=== PATIENT | male | born 1995 | race Caucasian/White ===

== ENCOUNTER 2017-05-31 20:22 | Emergency (ER) | payer SELFPAY ==
[2017-05-31 22:29] VITALS: BP 137/91
[2017-05-31] MEDS ORDERED: ACYCLOVIR 800 MG TABLET PO ONE (22:33)
[2017-05-31] MEDS ORDERED: DEXAMETHASONE 4 MG TABLET PO ONE (22:33)
--- NOTE | 2017-05-31 22:35 | ER Document Report ---
ED General - General Chief Complaint: Rash Stated Complaint: POSSIBLE RASH Time Seen by Provider: 05/31/17 22:31 Notes: Patient is a 21-year-old male without past medical history who presents with 3 days of progressively worsening rash on his right middle chest extending underneath the right axilla. Patient describes the area as a burning, constant , moderate pain. Touching the area worsens the pain. Nothing improves the pain. He denies any fever or constitutional symptoms. No headache. He denies any history of similar symptoms in the past. He has not seen his general doctor regarding today's concerns. No history of immune compromise or immunosuppressive drugs. TRAVEL OUTSIDE OF THE [place] IN LAST 30 DAYS: No - Related Data Allergies/Adverse Reactions: azithromycin [From Zithromax] Allergy (Verified 05/31/17 20:27) Past Medical History - General Information source: Patient - Social History Smoking Status: Never Smoker Chew tobacco use (# tins/day): No Frequency of alcohol use: None Drug Abuse: None Lives with: Spouse/Significant other Family History: Reviewed & Not Pertinent Patient has suicidal ideation: No Patient has homicidal ideation: No Renal/ Medical History: Denies: Hx Peritoneal Dialysis Review of Systems - Review of Systems Notes: Constitutional: Negative for fever. HENT: Negative for sore throat. Eyes: Negative for visual changes. Cardiovascular: Negative for chest pain. Respiratory: Negative for shortness of breath. Gastrointestinal: Negative for abdominal pain, vomiting or diarrhea. Genitourinary: Negative for dysuria. Musculoskeletal: Negative for back pain. Skin: Positive for rash. Neurological: Negative for headaches, weakness or numbness. 10 point ROS negative except as marked above and in HPI. Physical Exam - Vital signs Vitals: Temp Pulse Resp BP Pulse Ox 98.5 F 84 18 125/72 98 05/31/17 20:34 05/31/17 20:34 05/31/17 20:34 05/31/17 20:34 05/31/17 20:34 Interpretation: Normal Notes: PHYSICAL EXAMINATION: GENERAL: Well-appearing, well-nourished and in no acute distress. HEAD: Atraumatic, normocephalic. EYES: Pupils equal round and reactive to light, extraocular movements intact, sclera anicteric, conjunctiva are normal. ENT: nares patent, oropharynx clear without exudates. Moist mucous membranes. NECK: Normal range of motion, supple without lymphadenopathy LUNGS: Breath sounds clear to auscultation bilaterally and equal. No wheezes rales or rhonchi. HEART: Regular rate and rhythm without murmurs ABDOMEN: Soft, nontender, normoactive bowel sounds. No guarding, no rebound. No masses appreciated. EXTREMITIES: Normal range of motion, no pitting or edema. No cyanosis. NEUROLOGICAL: No focal neurological deficits. Moves all extremities spontaneously and on command. PSYCH: Normal mood, normal affect. SKIN: Warm, Dry, normal turgor, there are vesicular rash extending from the level just below the nipple along the lateral aspect of the right pectoralis muscle extending underneath the right axilla. No surrounding induration or purulent drainage Course - Re-evaluation Re-evalutation: 05/31/17 22:31 Patient presents with shingles on the right chest wrapping up underneath the axilla. He has no history of immune compromise, use of steroids, history of chemotherapy, or history of HIV or AIDS. No history of IV drug use. No risk factors for HIV or AIDS. Otherwise well in appearance, vitals normal limits, no acute distress. He has been started on acyclovir and given a dose of dexamethasone here in the emergency department. Nothing to suggest disseminated zoster. At this time will discharge with return precautions and follow-up recommendations. Verbal discharge instructions given a the bedside and opportunity for questions given. Medication warnings reviewed. Patient is in agreement with this plan and has verbalized understanding of return precautions and the need for primary care follow-up in the next 24-72 hours. - Vital Signs Vital signs: Temp Pulse Resp BP Pulse Ox 98.4 F 78 18 137/91 H 98 05/31/17 22:28 05/31/17 22:28 05/31/17 22:28 05/31/17 22:28 05/31/17 22:28 Discharge - Discharge Clinical Impression: Shingles Qualifiers: Herpes zoster complications: without complications Qualified Code(s): B02.9 - Zoster without complications Condition: Good Disposition: HOME, SELF-CARE Additional Instructions: You have been diagnosed with shingles. Please take the antiviral medication as prescribed until completed. For your pain: Take ibuprofen 600 mg and acetaminophen 1000 mg every 6 hours together as needed for pain. Please return if you develop fever, pus draining from the areas of the rash, vomiting, severe headache, confusion, or any other symptoms that are worrisome to you. Follow- up with your primary care doctor within the next 72 hours. Prescriptions: Acyclovir 800 mg PO 5XD #35 tablet
[2017-05-31] MEDS ORDERED: ACYCLOVIR 800 MG TABLET ONE (22:47)
== END 2017-05-31 23:01 | disposition home or self-care (01) ==
LOC: ER 20:22
DX: B02.9 Zoster without complications (principal); R21 Rash and other nonspecific skin eruption
CPT/HCPCS: 99282

== ENCOUNTER 2017-08-09 18:38 | Emergency (ER) | payer SELFPAY ==
[2017-08-09] MEDS ORDERED: TERBUTALINE SULFATE INJ/PF 1 MG/1 ML SDV SUBCUT ONE (18:52)
[2017-08-09] MEDS ORDERED: METHYLPREDNISOLONE INJ 125 MG/2 ML SDV IV ONE (18:52)
[2017-08-09] MEDS ORDERED: IPRATROPIUM/ALBUTEROL 0.5-2.5 MG/3 ML AMPUL NEB ONE ×2 (18:52→18:56)
--- NOTE | 2017-08-09 18:56 | ER Document Report ---
ED Medical Screen (RME) - General Chief Complaint: Asthma Exacerbation Stated Complaint: SHORT OF BREATH Time Seen by Provider: 08/09/17 18:51 Notes: RAPID MEDICAL EVALUATION DISCLOSURE I have seen this patient as part of a Rapid Medical Evaluation and, if applicable, placed any initially appropriate orders. The patient will be seen and fully evaluated, including a full history and physical exam, by a provider ( in Main ED or Fast Track) when a room becomes available. 21-year-old male here with shortness of breath wheezing. History was not obtained as the patient is having respiratory distress. Patient was told to focus on breathing and was immediately taken back to resuscitation room. EXAM Quiet chest with scant wheezing Significantly decreased aeration Tachycardic TRAVEL OUTSIDE OF THE [place] IN LAST 30 DAYS: No - Related Data Allergies/Adverse Reactions: azithromycin [From Zithromax] Allergy (Verified 05/31/17 20:27) Past Medical History Renal/ Medical History: Denies: Hx Peritoneal Dialysis Physical Exam - Vital signs Vitals: Temp Pulse Resp BP Pulse Ox 100.4 F 124 H 13 146/82 H 92 08/09/17 18:45 08/09/17 18:45 08/09/17 18:45 08/09/17 18:45 08/09/17 18:45 Course - Vital Signs Vital signs: Temp Pulse Resp BP Pulse Ox 100.4 F 124 H 13 146/82 H 92 08/09/17 18:45 08/09/17 18:45 08/09/17 18:45 08/09/17 18:45 08/09/17 18:45
[2017-08-09] MEDS ORDERED: MAGNESIUM SULFATE/D5W 1 GM/100 ML RTUPB IV SCH (19:00)
[2017-08-09] MEDS ORDERED: ALBUTEROL SULFATE 0.083% NEB 2.5 MG/3 ML AMPUL NEB ONE ×2 (19:02→19:57)
--- NOTE | 2017-08-09 19:03 | ER Document Report ---
ED General - General Chief Complaint: Asthma Exacerbation Stated Complaint: SHORT OF BREATH Time Seen by Provider: 08/09/17 18:51 Cannot obtain history due to: Unstable vital signs Notes: Patient is a 21-year-old male with a past medical history of asthma who presents with 24 hours of progressively worsening shortness of breath. Patient reports that his symptoms earlier today have become progressively worse throughout the day. Patient reports that he attempted to use his home inhalers with minimal to no success. He reports that he required hospitalization for his asthma several times and as a child but never as an adult. He has never required intubation for his asthma. He does not have a primary care physician. He notes that he has had a mild, nonproductive cough for the past 36-48 hours. Any form of exertion seems to worsen his symptoms. He denies any fever or sputum production. TRAVEL OUTSIDE OF THE [place] IN LAST 30 DAYS: No - Related Data Allergies/Adverse Reactions: azithromycin [From Zithromax] Allergy (Verified 05/31/17 20:27) Past Medical History - General Information source: Patient - Social History Smoking Status: Never Smoker Frequency of alcohol use: None Drug Abuse: None Lives with: Spouse/Significant other Family History: Reviewed & Not Pertinent Renal/ Medical History: Denies: Hx Peritoneal Dialysis Review of Systems - Review of Systems Notes: Constitutional: Negative for fever. HENT: Negative for sore throat. Eyes: Negative for visual changes. Cardiovascular: Negative for chest pain. Respiratory: Positive for shortness of breath. Gastrointestinal: Negative for abdominal pain, vomiting or diarrhea. Genitourinary: Negative for dysuria. Musculoskeletal: Negative for back pain. Skin: Negative for rash. Neurological: Negative for headaches, weakness or numbness. 10 point ROS negative except as marked above and in HPI. Physical Exam - Vital signs Vitals: Temp Pulse Resp BP Pulse Ox 100.4 F 124 H 13 146/82 H 92 08/09/17 18:45 08/09/17 18:45 08/09/17 18:45 08/09/17 18:45 08/09/17 18:45 Interpretation: Tachycardic, Hypoxic, Tachypneic Notes: PHYSICAL EXAMINATION: GENERAL: Moderate to severe respiratory distress. Appears visibly uncomfortable. HEAD: Atraumatic, normocephalic. EYES: Pupils equal round and reactive to light, extraocular movements intact, sclera anicteric, conjunctiva are normal. ENT: nares patent, oropharynx clear without exudates. Moist mucous membranes. NECK: Normal range of motion, supple without lymphadenopathy LUNGS: Moderate severe respiratory distress with intercostal and supraclavicular retractions. Breathing approximately 30 times per minute. Poor air movement throughout. Heart wheeze next visit coughing. Tense end expiratory wheezing. HEART: Regular tachycardia without murmurs ABDOMEN: Soft, nontender, normoactive bowel sounds. No guarding, no rebound. No masses appreciated. EXTREMITIES: Normal range of motion, no pitting or edema. No cyanosis. NEUROLOGICAL: No focal neurological deficits. Moves all extremities spontaneously and on command. PSYCH: Moderately anxious SKIN: Warm, Dry, normal turgor, no rashes or lesions noted. Course - Re-evaluation Re-evalutation: 08/09/17 19:02 Patient presents in moderate to severe respiratory distress breathing approximately 30-34 breaths per minute, very poor air movement throughout and a tight end expiratory wheezing in all lung hill. He is retracting. He was immediately placed in a resuscitation room. Continuous albuterol and ipratropium nebulizers have been initiated. IV will be established and 2 g magnesium will be rapidly infused over 10 minutes. Solu-Medrol will be administered. I will continue to reassess this patient on regular intervals as he is high risk for decompensation from a respiratory standpoint. 08/09/17 19:58 Patient continues to wheeze although is moving air much more appropriately. He remains moderately tachypneic but his work of breathing has improved. We are continuing continuous nebulizers at this time point. Magnesium has infused as has Solu-Medrol. Will continue to monitor closely. 08/09/17 20:52 Chest x-ray clear. Labs unremarkable. Patient is no longer wheezing, no longer in any form of respiratory distress, mild cough. His nebulizers have been discontinued and he is currently saturating 95% on room air. We will monitor to ensure that he remains improved off of continuous nebulizers for at least 1 hour. 08/09/17 22:14 Patient has continued to tolerate being off continuous nebulizers now for over 1 hour. He is no longer tachypneic, saturating 98% on room air and his tachycardia has improved. He has no decreased air movement in the lung hill and no longer has been expiratory wheezing. He will be discharged home on prednisone, and albuterol inhaler with spacer and Qvar for 21 days. At this time will discharge with return precautions and follow-up recommendations. Verbal discharge instructions given a the bedside and opportunity for questions given. Medication warnings reviewed. Patient is in agreement with this plan and has verbalized understanding of return precautions and the need for primary care follow-up in the next 24-72 hours. - Vital Signs Vital signs: Temp Pulse Resp BP Pulse Ox 98.6 F 120 H 15 126/69 H 96 08/09/17 22:46 08/09/17 19:15 08/09/17 22:01 08/09/17 22:00 08/09/17 22:01 - Laboratory Result Diagrams: 08/09/17 19:05 08/09/17 19:05 Laboratory results interpreted by me: 08/09/17 08/09/17 19:05 19:05 Lymphocytes % 12.4 L Glucose 119 H - Diagnostic Test Radiology reviewed: Image reviewed, Reports reviewed Radiology results interpreted by me: 08/09/17 22:14 Chest x-ray: No acute infiltrate or pneumothorax Critical Care Note - Critical Care Note Total time excluding time spent on procedures (mins): 38 Comments: Critical care time spent obtaining history from patient or surrogate, discussions with consultants, development of treatment plan with patient or surrogate, evaluation of patient's response to treatment, examination of patient , ordering and performing treatments and interventions, ordering and review of laboratory studies, re-evaluation of patient's condition, ordering and review of radiographic studies and review of old charts Discharge - Discharge Clinical Impression: Respiratory distress Asthma exacerbation Qualifiers: Asthma severity: moderate Asthma persistence: persistent Qualified Code(s): J45.41 - Moderate persistent asthma with (acute) exacerbation Condition: Good Disposition: HOME, SELF-CARE Additional Instructions: You were seen for an asthma exacerbation. Your symptoms improved with treatment here in the emergency department. However, it is very important that you return to the emergency department immediately if you began to have worsening difficulty breathing that does not respond to your normal home nebulizers. You are also being sent home on a five-day course of steroids that you should start taking tomorrow. Please also follow closely with your primary care physician. you should also return to emergency department if you develop fever greater than 101, persistent cough, persistent vomiting, pass out, or any other symptoms that are concerning to you. Prescriptions: Beclomethasone Dipropionate [Qvar] 1 - 2 inh IH BID 21 Days #1 [email or web address] Prednisone [Deltasone 20 mg Tablet] 3 tab PO DAILY 5 Days tablet Forms: Return to Work
[2017-08-09 19:26] LABS: ABSOLUTE EOSINOPHILS # (AUTO) 0.3 10^3/uL (0.0-0.6); ABSOLUTE MONOCYTES (AUTO) 0.7 10^3/uL (0.1-1.4); ABSOLUTE NEUT (AUTO) 6.4 10^3/uL (1.7-8.2); BASOPHILS % (AUTO) 0.3 % (0-2); HEMATOCRIT 47.6 % (37.9-51.0); HEMOGLOBIN 16.5 g/dL (13.5-17.0); LYMPHOCYTES % (AUTO) 12.4 % (13-45); MEAN CORPUSCULAR HEMOGLOBIN 31.3 pg (27.0-33.4); MEAN CORPUSCULAR HGB CONC 34.7 g/dL (32.0-36.0); MEAN CORPUSCULAR VOLUME 90 fl (80-97); MONOCYTES % (AUTO) 8.2 % (3-13); PLATELET COUNT 243 10^3/uL (150-450); RED BLOOD COUNT 5.27 10^6/uL (4.35-5.55); RED CELL DISTRIBUTION WIDTH 12.9 % (11.5-14.0); SEGMENTED NEUTROPHILS % (AUTO) 76.1 % (42-78); TOTAL CELLS COUNTED % (AUTO) 100 %; WHITE BLOOD COUNT 8.4 10^3/uL (4.0-10.5)
[2017-08-09 19:34] LABS: ANION GAP 16 (5-19); BLOOD UREA NITROGEN 9 mg/dL (7-20); CALCIUM 10.1 mg/dL (8.4-10.2); CARBON DIOXIDE 24 mmol/L (22-30); CHLORIDE 101 mmol/L (98-107); GLUCOSE 119 mg/dL (75-110); POTASSIUM 3.9 mmol/L (3.6-5.0); SODIUM 141.1 mmol/L (137-145)
--- NOTE | 2017-08-09 20:29 | RADIOLOGY REPORT (SQ) ---
EXAM DESCRIPTION: CHEST SINGLE VIEW COMPLETED DATE/TIME: 08/09/2017 7:32 pm REASON FOR STUDY: asthma exacerbation COMPARISON: None. EXAM PARAMETERS: NUMBER OF VIEWS: One view. TECHNIQUE: Single frontal radiographic view of the chest acquired. RADIATION DOSE: NA LIMITATIONS: None. FINDINGS: LUNGS AND PLEURA: No opacities, masses or pneumothorax. No pleural effusion. MEDIASTINUM AND HILAR STRUCTURES: No masses. Contour normal. HEART AND VASCULAR STRUCTURES: Heart normal in size. Normal vasculature. BONES: No acute findings. HARDWARE: None in the chest. OTHER: No other significant finding. IMPRESSION: NO ACUTE RADIOGRAPHIC FINDING IN THE CHEST. TECHNICAL DOCUMENTATION: JOB ID: [id number] [place]-72 2010 [employer]- All Rights Reserved Reading location - IP/workstation name: [email or web address]
[2017-08-09] MEDS ORDERED: ALBUTEROL SULFATE HFA (90 MCG/PUFF) 200 PUFF/8.5 GM MDI IH ONE (22:12)
[2017-08-09 22:48] VITALS: BP 126/69
== END 2017-08-09 22:48 | disposition home or self-care (01) ==
LOC: ER 18:38
DX: J45.41 Moderate persistent asthma with (acute) exacerbation (principal); R06.02 Shortness of breath; R05 Cough; R00.0 Tachycardia, unspecified; R09.02 Hypoxemia; Z88.1 Allergy status to other antibiotic agents
CPT/HCPCS: 94640 ×2; 99291; 96374; 36415; 85025; 80048; 71045; J2930; J3475; J3490; J7620

== ENCOUNTER 2017-08-10 02:20 | Inpatient (IN) | payer SELFPAY ==
--- NOTE | 2017-08-10 02:48 | ER Document Report ---
ED General - General Chief Complaint: Asthma Exacerbation Stated Complaint: CHEST PAIN Time Seen by Provider: 08/10/17 02:48 Mode of Arrival: Ambulatory Information source: Patient Notes: 21-year-old gentleman with past medical history of asthma who presented today as a second visit for evaluation of shortness of breath. Patient was seen approximately 6 hours ago in our department and was treated for acute asthma exacerbation with multiple medications including magnesium, steroids, continues bronchodilator treatments as well as terbutaline. Patient improved and was sent home with strict precautions. Patient came back with worsening shortness of breath, chest tightness, wheezing as well as difficulty breathing. TRAVEL OUTSIDE OF THE [place] IN LAST 30 DAYS: No - Related Data Allergies/Adverse Reactions: azithromycin [From Zithromax] Allergy (Verified 05/31/17 20:27) Past Medical History - Social History Smoking Status: Never Smoker Family History: Reviewed & Not Pertinent Pulmonary Medical History: Reports: Hx Asthma Renal/ Medical History: Denies: Hx Peritoneal Dialysis Review of Systems - Review of Systems Notes: REVIEW OF SYSTEMS: CONSTITUTIONAL: -fevers, -chills EENT: -eye pain, -difficulty swallowing, -nasal congestion CARDIOVASCULAR: -chest pain, -syncope. RESPIRATORY: + Cough, + shortness of breath GASTROINTESTINAL: -abdominal pain, -nausea, -vomiting, -diarrhea GENITOURINARY: -dysuria, -hematuria MUSCULOSKELETAL: -back pain, -neck pain SKIN: -rash or skin lesions. HEMATOLOGIC: -easy bruising or bleeding. LYMPHATIC: -swollen, enlarged glands. NEUROLOGICAL: -altered mental status or loss of consciousness, -headache, - neurologic symptoms PSYCHIATRIC: -anxiety, -depression. ALL OTHER SYSTEMS REVIEWED AND NEGATIVE. Physical Exam - Vital signs Vitals: Temp Pulse Resp BP Pulse Ox 97.7 F 115 H 22 H 140/87 H 90 L 08/10/17 02:28 08/10/17 02:28 08/10/17 02:28 08/10/17 02:28 08/10/17 02:28 - Notes Notes: Reviewed vital signs and nursing note as charted by RN. CONSTITUTIONAL: Alert and oriented and responds appropriately to questions HEAD: Normocephalic; atraumatic EYES: PERRL; Conjunctivae clear, sclerae non-icteric ENT: normal nose; no rhinorrhea; moist mucous membranes; pharynx without lesions noted NECK: Supple without meningismus; non-tender; no cervical lymphadenopathy, no masses CARD: Tachycardia; no murmurs, no clicks, no rubs, no gallops; symmetric distal pulses RESP: Patient has mild tachypnea, patient has chest tightness throughout his lung hill, inspiratory and expiratory wheezing present ABD/GI: Normal bowel sounds; non-distended; soft, nondistended BACK: The back appears normal and is non-tender to palpation EXT: Normal ROM in all joints; non-tender to palpation; no cyanosis, no effusions, no edema SKIN: Normal color for age and race; warm; dry; good turgor; capillary refill < 2 seconds; no acute lesions noted NEURO: .Cranial nerves 3-12 intact. Motor strength 5/5 bilaterally. Sensation intact to touch bilaterally. No pronator drift. Finger to nose intact bilaterally PSYCH: The patient's mood and manner are appropriate. Grooming and personal hygiene are appropriate. Course - Re-evaluation Re-evalutation: 21-year-old presented today for evaluation of shortness of breath, wheezing is a second visit Patient has worsening shortness of breath as well as chest tightness We will start patient on continues bronchodilators as well as IM epinephrine Patient already received a dose of steroids earlier during his visit We will obtain CT scan to further evaluate his lung hill for possible PE or missed pneumonia on x-ray Also consider pneumothorax given his persistent increased respiratory effort 08/10/17 03:57 Patient feels slightly better after bronchodilator treatments as well as IM epinephrine We will continue with IV hydration CT scan of his chest did not reveal any evidence of acute PE Case discussed with hospitalist, agree with admission for management of status asthmaticus 08/10/17 04:04 Hospitalist at bedside, agree with admission Recommended to reduce his IV magnesium, will continue with IV hydration - Vital Signs Vital signs: Temp Pulse Resp BP Pulse Ox 97.7 F 115 H 20 109/82 94 08/10/17 02:28 08/10/17 02:28 08/10/17 03:01 08/10/17 03:01 08/10/17 03:01 - Diagnostic Test Radiology reviewed: Image reviewed - CT scan did not reveal any evidence of acute PE Critical Care Note - Critical Care Note Comments: Critical Care Time: 35 minutes Critical care provider statement: Critical care time was exclusive of: Separately billable procedures and treating other patients and teaching time Critical care was time spent personally by me on the following activities: Blood draw for specimens, development of treatment plan with patient or surrogate, evaluation of patient's response to treatment, examination of patient , obtaining history from patient or surrogate, ordering and performing treatments and interventions, ordering and review of laboratory studies, ordering and review of radiographic studies, pulse oximetry, re-evaluation of patient's condition and review of old charts I assumed direction of critical care for this patient from another provider in my specialty: no Discharge - Discharge Clinical Impression: Status asthmaticus Qualifiers: Asthma severity: moderate Asthma persistence: unspecified Qualified Code(s): J45.902 - Unspecified asthma with status asthmaticus Condition: Stable Admitting Provider: Hospitalist Unit Admitted: [facility]
[2017-08-10] MEDS ORDERED: IPRATROPIUM/ALBUTEROL 0.5-2.5 MG/3 ML AMPUL NEB ONE ×3 (02:50→03:08)
[2017-08-10] MEDS ORDERED: EPINEPHRINE INJ/PF 1 MG/1 ML AMPULE IM ONE (03:08)
--- NOTE | 2017-08-10 03:49 | RADIOLOGY REPORT (SQ) ---
EXAM DESCRIPTION: CT CHEST ANGIOGRAPHY WITHOUT THEN WITH IV CONTRAST CLINICAL HISTORY: 21 years Male, PE Comparison: None. Technique: IV contrast. Coronal and sagittal reformat. 3d reconstruction. This exam was performed according to our departmental dose-optimization program, which includes automated exposure control, adjustment of the mA and/or kV according to patient size and/or use of iterative reconstruction technique.[facility]: Dose Right [facility]: CareDose [facility]: Dose Right [facility]: Teradose 4D [facility]: Omnigy LIMITATIONS: None. Findings: No pulmonary embolus. No right ventricular strain. Clear lungs. Increased lung volume. Inferior neck, axillae, mediastinum, lungs, airway, lymphatics, heart, vasculature, upper abdomen, and musculoskeleton appear unremarkable. Impression: 1. Hyperinflation. 2. No pulmonary embolus.
[2017-08-10] MEDS ORDERED: ACETAMINOPHEN 325 MG TABLET PO PRN (04:11)
[2017-08-10] MEDS ORDERED: ONDANSETRON HCL INJ/PF 4 MG/2 ML SDV IV PRN (04:11)
--- NOTE | 2017-08-10 04:25 | PDOC H&P ---
History of Present Illness Admission Date/PCP: 08/10/17 04:06 History of Present Illness: JEFFERY SIMON is a 21 year old male patient presents with shortness of breath, wheezing and chest tightness. This is his second visit for less than 24 hours to the ER. About 6 hours ago patient seen ER where he was given steroids magnesium sulfate and DuoNeb, patient discharged improved. He came back with the same complaint at this time they are attending requested CT of the chest and PE ruled out. Patient denies flulike symptoms and other constitutional symptoms. No headache, dizziness or blurry vision. No orthopnea or PND. No history of intubation for asthma attack. Past Medical History Pulmonary Medical History: Reports: Asthma Past Surgical History Past Surgical History: Reports: None Social History Smoking Status: Never Smoker Frequency of Alcohol Use: None Hx Recreational Drug Use: No Drugs: None - Advance Directive Resuscitation Status: Full Code Family History Family History: None, Reviewed & Not Pertinent Parental Family History Reviewed: Yes Children Family History Reviewed: Yes Sibling(s) Family History Reviewed.: Yes Medication/Allergy Home Medications: Acyclovir 800 mg PO 5XD #35 tablet 05/31/17 Beclomethasone Dipropionate [Qvar] 1 - 2 inh IH BID 21 Days #1 aer.w.[email or web address] Prednisone [Deltasone 20 mg Tablet] 3 tab PO DAILY 5 Days tablet 08/09/17 Allergies/Adverse Reactions: azithromycin [From Zithromax] Allergy (Verified 05/31/17 20:27) Review of Systems Constitutional: ABSENT: chills, fever(s), headache(s), weight gain, weight loss Eyes: ABSENT: visual disturbances Cardiovascular: ABSENT: chest pain, dyspnea on exertion, edema, orthropnea, palpitations Respiratory: PRESENT: cough, dyspnea Gastrointestinal: ABSENT: abdominal pain, constipation, diarrhea, hematemesis, hematochezia, nausea, vomiting Neurological: ABSENT: abnormal gait, abnormal speech, confusion, dizziness, focal weakness, syncope Psychiatric: ABSENT: anxiety, depression, homidical ideation, suicidal ideation Physical Exam Vital Signs: Temp Pulse Resp BP Pulse Ox 97.7 F 115 H 20 109/82 94 08/10/17 02:28 08/10/17 02:28 08/10/17 03:01 08/10/17 03:01 08/10/17 03:01 General appearance: PRESENT: other - Mild to moderate respiratory distress Head exam: PRESENT: atraumatic, normocephalic Eye exam: PRESENT: conjunctiva pink, EOMI, PERRLA. ABSENT: scleral icterus Respiratory exam: PRESENT: wheezes - Bilateral diffuse wheezing Cardiovascular exam: PRESENT: RRR. ABSENT: diastolic murmur, rubs, systolic murmur GI/Abdominal exam: PRESENT: normal bowel sounds, soft. ABSENT: distended, guarding, mass, organolmegaly, rebound, tenderness Neurological exam: PRESENT: alert, awake, oriented to person, oriented to place , oriented to time, oriented to situation, CN II-XII grossly intact. ABSENT: motor sensory deficit Psychiatric exam: PRESENT: appropriate affect, normal mood. ABSENT: homicidal ideation, suicidal ideation Assessment & Plan - Diagnosis (1) Status asthmaticus Qualifiers: Asthma severity: moderate Asthma persistence: unspecified Qualified Code( s): J45.902 - Unspecified asthma with status asthmaticus Is this a current diagnosis for this admission?: Yes Plan: Patient has been started on DuoNeb, Solu-Medrol and Pulmicort. - Time Time Spent: 30 to 50 Minutes - Inpatient Certification Medical Necessity: Need Close Monitoring Due to Risk of Patient Decompensation
[2017-08-10] MEDS: MAGNESIUM SULFATE/D5W 1 GM/100 ML RTUPB IV SCH ×2 (04:54→06:08)
[2017-08-10] MEDS: NORMAL SALINE 1000 ML 1,000 ML IV PRN ×2 (05:18→05:19)
[2017-08-10] MEDS ORDERED: METHYLPREDNISOLONE INJ 125 MG/2 ML SDV IV SCH (06:00)
[2017-08-10] MEDS: LANSOPRAZOLE 30 MG TAB.RAP.DR PO SCH (06:08)
[2017-08-10 06:52] LABS: ABSOLUTE LYMPHOCYTES (AUTO) 0.5 10^3/uL (0.5-4.7); ABSOLUTE MONOCYTES (AUTO) 0.3 10^3/uL (0.1-1.4); ABSOLUTE NEUT (AUTO) 7.8 10^3/uL (1.7-8.2); BASOPHILS % (AUTO) 0.1 % (0-2); HEMATOCRIT 42.9 % (37.9-51.0); HEMOGLOBIN 14.8 g/dL (13.5-17.0); MEAN CORPUSCULAR HGB CONC 34.4 g/dL (32.0-36.0); MEAN CORPUSCULAR VOLUME 90 fl (80-97); PLATELET COUNT 214 10^3/uL (150-450); RED BLOOD COUNT 4.76 10^6/uL (4.35-5.55); RED CELL DISTRIBUTION WIDTH 13.3 % (11.5-14.0); SEGMENTED NEUTROPHILS % (AUTO) 89.9 % (42-78); TOTAL CELLS COUNTED % (AUTO) 100 %; WHITE BLOOD COUNT 8.7 10^3/uL (4.0-10.5)
[2017-08-10 07:20] LABS: ANION GAP 19 (5-19); BLOOD UREA NITROGEN 12 mg/dL (7-20); CALCIUM 9.2 mg/dL (8.4-10.2); CARBON DIOXIDE 20 mmol/L (22-30); CHLORIDE 105 mmol/L (98-107); GLUCOSE 213 mg/dL (75-110); POTASSIUM 4.1 mmol/L (3.6-5.0); SODIUM 143.7 mmol/L (137-145)
[2017-08-10] MEDS: IPRATROPIUM/ALBUTEROL 0.5-2.5 MG/3 ML AMPUL NEB SCH ×5 (08:00→23:44)
[2017-08-10] MEDS: BUDESONIDE NEB 0.5 MG/2 ML AMPUL NEB SCH ×2 (08:00→19:59)
[2017-08-10 09:58] LABS: PHOSPHORUS 2.5 mg/dL (2.5-4.5)
[2017-08-10] MEDS ORDERED: ENOXAPARIN SODIUM INJ 40 MG/0.4 ML DISP.SYRIN SUBCUT SCH (10:00)
--- NOTE | 2017-08-10 11:49 | PDOC PROGRESS REPORT ---
Subjective Progress Note for:: 08/10/17 Subjective:: 21 yr old male with h/o asthma who presented with severe dyspnea and wheeaing. Was treated with steroids and nebs. Feels better this morning Reason For Visit: STATUS ASTHMATICUS Physical Exam Vital Signs: Temp Pulse Resp BP Pulse Ox 98.2 F 104 H 15 132/63 H 93 08/10/17 07:15 08/10/17 08:00 08/10/17 08:00 08/10/17 07:15 08/10/17 07:15 Intake & Output 08/09/17 08/10/17 08/11/17 06:59 06:59 06:59 Intake Total 2101 Balance 2101 Weight 72.9 kg General appearance: PRESENT: no acute distress Neck exam: ABSENT: tracheal deviation Respiratory exam: PRESENT: symmetrical, unlabored, wheezes Cardiovascular exam: PRESENT: RRR GI/Abdominal exam: PRESENT: normal bowel sounds, soft. ABSENT: tenderness Rectal exam: PRESENT: deferred Extremities exam: ABSENT: pedal edema Neurological exam: PRESENT: alert, awake, oriented to person, oriented to place , oriented to time, oriented to situation Psychiatric exam: PRESENT: appropriate affect Results Laboratory Results: 08/10/17 06:36 08/10/17 06:36 08/10/17 08/10/17 08/10/17 06:36 06:36 06:36 WBC 8.7 RBC 4.76 Hgb 14.8 Hct 42.9 MCV 90 MCH 31.0 MCHC 34.4 RDW 13.3 Plt Count 214 Seg Neutrophils % 89.9 H Lymphocytes % 6.0 L Monocytes % 4.0 Eosinophils % 0.0 Basophils % 0.1 Absolute Neutrophils 7.8 Absolute Lymphocytes 0.5 Absolute Monocytes 0.3 Absolute Eosinophils 0.0 Absolute Basophils 0.0 Sodium 143.7 Potassium 4.1 Chloride 105 Carbon Dioxide 20 L Anion Gap 19 BUN 12 Creatinine 0.88 Est GFR ( Amer) > 60 Est GFR (Non-Af Amer) > 60 Glucose 213 H Calcium 9.2 Phosphorus 2.5 Magnesium 2.5 H Assessment & Plan - Diagnosis (1) Asthma exacerbation Qualifiers: Asthma severity: moderate Asthma persistence: persistent Qualified Code(s ): J45.41 - Moderate persistent asthma with (acute) exacerbation Is this a current diagnosis for this admission?: Yes Plan: IV steroids, nebs, supplemental oxygen - Time Time Spent with patient: 25-34 minutes
[2017-08-10] MEDS: METHYLPREDNISOLONE INJ 40 MG/1 ML SDV IV SCH ×2 (13:37→22:26)
[2017-08-11] MEDS: IPRATROPIUM/ALBUTEROL 0.5-2.5 MG/3 ML AMPUL NEB SCH ×3 (04:10→11:18)
[2017-08-11] MEDS: LANSOPRAZOLE 30 MG TAB.RAP.DR PO SCH (05:56)
[2017-08-11] MEDS: METHYLPREDNISOLONE INJ 40 MG/1 ML SDV IV SCH (05:56)
[2017-08-11] MEDS: BUDESONIDE NEB 0.5 MG/2 ML AMPUL NEB SCH (08:03)
[2017-08-11 10:49] VITALS: BP 121/49
--- NOTE | 2017-08-11 18:16 | PDOC DISCHARGE SUMMARY ---
General - Admit/Disc Date/PCP Admission Date/Primary Care Provider: 08/10/17 04:06 Discharge Date: 08/11/17 - Discharge Diagnosis (1) Status asthmaticus Is this a current diagnosis for this admission?: Yes Summary: Improved with nebulizers and steroids. He will be discharged on 5 days of prednisone, given a prescription for Advair, and a rescue inhaler. He needs to establish primary care - Additional Information Resuscitation Status: Full Code Discharge Diet: As Tolerated Discharge Activity: Activity As Tolerated Prescriptions: Albuterol Sulfate [Ventolin Hfa 8 gm Mdi (1 Mdi/ER Disp)] 2 puff IH Q4HP PRN #1 inhaler PRN Reason: For Wheezing Fluticasone/Salmeterol [Advair 250-50 Diskus 28 dose] 1 inh IH Q12H #1 inhaler Prednisone 20 mg PO BID #10 tablet Home Medications: Albuterol Sulfate [Ventolin Hfa 8 gm Mdi (1 Mdi/ER Disp)] 2 puff IH Q4HP PRN #1 inhaler 08/11/17 Fluticasone/Salmeterol [Advair 250-50 Diskus 28 dose] 1 inh IH Q12H #1 inhaler 08/11/17 Prednisone 20 mg PO BID #10 tablet 08/11/17 History of Present Illness Patient complains of: Short of breath and wheezing History of Present Illness: JEFFERY SIMON is a 21 year old male patient presents with shortness of breath, wheezing and chest tightness. This is his second visit for less than 24 hours to the ER. About 6 hours ago patient seen ER where he was given steroids magnesium sulfate and DuoNeb, patient discharged improved. He came back with the same complaint at this time they are attending requested CT of the chest and PE ruled out. Patient denies flulike symptoms and other constitutional symptoms. No headache, dizziness or blurry vision. No orthopnea or PND. No history of intubation for asthma attack. Hospital Course Hospital Course: He was treated empirically with steroids and nebulizers. His wheezing is resolved, he feels he is breathing better but not at baseline, is on room air, so I think he can go home and complete his convalescence there. Physical Exam Vital Signs: Temp Pulse Resp BP Pulse Ox 97.7 F 67 20 121/49 L 95 08/11/17 11:25 08/11/17 11:25 08/11/17 11:25 08/11/17 11:25 08/11/17 11:25 Intake & Output 08/10/17 08/11/17 08/12/17 05:59 05:59 05:59 Intake Total 3661 812 Balance 3661 812 Weight 160 lb 11.472 oz 172 lb 2.896 oz General appearance: PRESENT: no acute distress Respiratory exam: PRESENT: clear to auscultation noah, decreased breath sounds. ABSENT: rhonchi, wheezes Cardiovascular exam: PRESENT: RRR GI/Abdominal exam: PRESENT: soft Neurological exam: PRESENT: alert Psychiatric exam: PRESENT: appropriate affect Skin exam: PRESENT: warm Results Laboratory Results: 08/10/17 06:36 08/10/17 06:36 Qualifiers - * PATIENT BEING DISCHARGED WITH ANY OF THE FOLLOWING DIAGNOSIS: No - Asthma, but not pediatric.
== END 2017-08-11 11:40 | disposition home or self-care (01) | DRG 203 ==
LOC: ER 02:20 → EH 04:06 → 3W 05:44
PROVIDERS: ADMIT Internal Medicine; ATTEND Internal Medicine
PROC: 3E0F73Z Introduction of Anti-inflammatory into Respiratory Tract, Via Natural or Artificial Opening (ICD-10-PCS; principal; 2017-08-10)
DX: J45.42 Moderate persistent asthma with status asthmaticus (principal); Z88.3 Allergy status to other anti-infective agents
CPT/HCPCS: 36415; 71275; 80048; 83735; 84100; 85025; 94640; 96372; 99291; J0171; J2920; J2930; J3475; J7030; J7620